=== PATIENT | male | born 1950 | race Caucasian/White ===

== ENCOUNTER 2025-01-15 13:52 | Day surgery (SDC) | payer OTHER ==
[2025-01-12 12:11] LABS: BASOPHILS # (AUTO) 0.1 X10'3 (0-0.2); BASOPHILS % (AUTO) 1.2 % (0-1); EOSINOPHILS # (AUTO) 0.1 X10'3 (0-0.9); EOSINOPHILS % (AUTO) 1.1 % (0-6); HEMATOCRIT 39.5 % (42.0-52.0); HEMOGLOBIN 13.6 g/dl (14.0-17.9); LYMPHOCYTES # (AUTO) 0.7 X10'3 (1.1-4.8); LYMPHOCYTES % (AUTO) 11.9 % (21-51); MEAN CORPUSCULAR HEMOGLOBIN 32.9 PG (27.0-31.0); MEAN CORPUSCULAR HGB CONC 34.3 g/dL (33.0-36.5); MEAN CORPUSCULAR VOLUME 95.7 FL (78-98); MONOCYTES # (AUTO) 0.4 X10'3 (0-0.9); MONOCYTES % (AUTO) 6.8 % (2-12); NEUTROPHILS # (AUTO) 4.8 X10'3 (1.8-7.7); PLATELET COUNT 288 X10'3 (140-440); RED BLOOD COUNT 4.13 X10'6 (4.70-6.10); RED CELL DISTRIBUTION WIDTH 14.8 % (11.5-14.5); WHITE BLOOD COUNT 6.1 X10'3 (4.5-11.0)
[2025-01-12 12:27] LABS: APTT 28 SECONDS (22-32); PROTHROMBIN TIME 10.6 SECONDS (9.0-12.0)
[2025-01-12 12:30] LABS: ALBUMIN 3.5 G/DL (3.4-5.0); ANION GAP 8 (8-16); BLOOD UREA NITROGEN 23 MG/DL (7-18); BUN/CREATININE RATIO 19.8 (10.0-20.0); CALCIUM 9.5 MG/DL (8.5-10.1); CHLORIDE 92 MMOL/L (99-107); CHOL/HDL RATIO 3.3 (0.00-4.99); CHOLESTEROL 176 MG/DL (0-200); CREATININE 1.16 MG/DL (0.60-1.10); HDL CHOLESTEROL 54 MG/DL (35-60); LDL CHOLESTEROL 86 MG/DL (50-100); SODIUM 131 MMOL/L (135-145); TOTAL CARBON DIOXIDE 30.7 MMOL/L (24-32); TRIGLYCERIDES 303 MG/DL (20-135); eGFR 62 ML/MIN
[2025-01-12 12:46] LABS: GLUCOSE 492 MG/DL (70-104)
[~2025-01-15] VITALS: Ht 170.2 cm; Wt 72.8 kg
[2025-01-15] MEDS ORDERED: normal saline 1,000 ML IV SCH (14:35)
[2025-01-15] MEDS ORDERED: diphenhydrAMINE 25mg capsule PO PRN (14:35)
[2025-01-15] MEDS ORDERED: LORazepam 0.5 MG tablet PO PRN (14:35)
--- NOTE | 2025-01-15 14:37 | ELECTROCARDIOGRAPH REPORT ---
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 Jaylen Baker Measurements Intervals [place] Rate: 74 P: 64 OR: 158 QRS: 31 QRSD: 84 T: 43 QT: 375 QTc: 416 Interpretive Statements Sinus rhythm Electronically Signed On 01-15-2025 18:53:[address] Jaylen Baker Please click the below link to view image of tracing.
[2025-01-15] MEDS ORDERED: CHOL20002 PO (14:38)
[2025-01-15] MEDS ORDERED: GABA-530 PO (14:39)
[2025-01-15] MEDS ORDERED: CALC1TAB77 PO (14:39)
[2025-01-15] MEDS ORDERED: METH-798 PO (14:40)
[2025-01-15] MEDS ORDERED: METF-1203 PO (14:41)
[2025-01-15] MEDS ORDERED: METH1TAB32 PO (14:41)
[2025-01-15] MEDS ORDERED: APIX5TAB3 PO (14:42)
[2025-01-15] MEDS ORDERED: LOP12.5T PO (14:43)
[2025-01-15] MEDS ORDERED: SIMV-42 PO (14:43)
[2025-01-15] MEDS ORDERED: CLOP-32 PO (14:43)
== END 2025-01-15 14:55 | disposition home or self-care (01) ==
LOC: SSTAY O 13:52
PROVIDERS: ATTEND Internal Medicine Interventional Cardiology
DX: I65.23 Occlusion and stenosis of bilateral carotid arteries (principal); Z53.8 Procedure and treatment not carried out for other reasons; I48.91 Unspecified atrial fibrillation; E11.9 Type 2 diabetes mellitus without complications; Z79.899 Other long term (current) drug therapy
CPT/HCPCS: 36415; 80048; 80061; 82948; 83695; 85025; 85610; 85730; 93005

== ENCOUNTER 2025-01-15 15:01 | Emergency (ER) | payer OTHER, MEDICARE ==
[~2025-01-15] VITALS: Ht 170.2 cm; Wt 72.7 kg
[~2025-01-15 15:01] MED LIST: APIX5TAB3 PO; CALC1TAB77 PO; CHOL20002 PO; CLOP-32 PO; GABA-530 PO; LOP12.5T PO; METF-1203 PO; METH-798 PO; METH1TAB32 PO; SIMV-42 PO
--- NOTE | 2025-01-15 15:20 | ELECTROCARDIOGRAPH REPORT ---
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
[2025-01-15 15:41] LABS: BASOPHILS # (AUTO) 0.1 X10'3 (0-0.2); BASOPHILS % (AUTO) 0.9 % (0-1); EOSINOPHILS # (AUTO) 0.1 X10'3 (0-0.9); EOSINOPHILS % (AUTO) 0.9 % (0-6); HEMATOCRIT 38.7 % (42.0-52.0); HEMOGLOBIN 13.2 g/dl (14.0-17.9); LYMPHOCYTES # (AUTO) 0.7 X10'3 (1.1-4.8); MEAN CORPUSCULAR HEMOGLOBIN 33.2 PG (27.0-31.0); MEAN CORPUSCULAR HGB CONC 34.2 g/dL (33.0-36.5); MEAN CORPUSCULAR VOLUME 97.1 FL (78-98); MEAN PLATELET VOLUME 8.1 FL (7.4-10.4); MONOCYTES # (AUTO) 0.7 X10'3 (0-0.9); NEUTROPHILS % (AUTO) 76.2 % (42-75); PLATELET COUNT 250 X10'3 (140-440); RED BLOOD COUNT 3.99 X10'6 (4.70-6.10); RED CELL DISTRIBUTION WIDTH 15.1 % (11.5-14.5); WHITE BLOOD COUNT 6.5 X10'3 (4.5-11.0)
--- NOTE | 2025-01-15 15:42 | RADIOLOGY REPORT ---
CHEST RADIOGRAPH Indication: CP Technique: Single frontal view of the chest was obtained Comparison: None FINDINGS: Lines and Tubes: None Lungs: No focal consolidation. Pleura: No effusion. No pneumothorax. Cardiomediastinal contours: Unremarkable Bones: No acute osseous abnormality. IMPRESSION: No acute cardiopulmonary disease.
[2025-01-15 16:08] LABS: ALANINE AMINOTRANSFERASE 18 U/L (12-78); ALBUMIN 3.1 G/DL (3.4-5.0); ALBUMIN/GLOBULIN RATIO 0.7 (1.1-1.5); ALKALINE PHOSPHATASE 100 IU/L (46-116); ANION GAP 8 (8-16); ASPARTATE AMINO TRANSFERASE 14 U/L (10-37); BILIRUBIN,TOTAL 0.5 MG/DL (0.1-1.0); BLOOD UREA NITROGEN 29 MG/DL (7-18); BUN/CREATININE RATIO 24.4 (10.0-20.0); CALCIUM 9.9 MG/DL (8.5-10.1); CHLORIDE 99 MMOL/L (99-107); CREATININE 1.19 MG/DL (0.60-1.10); POTASSIUM 4.8 MMOL/L (3.5-5.1); PRO BRAIN NATRIURETIC PEPTIDE 50 PG/ML (0-125); SODIUM 136 MMOL/L (135-145); TOTAL CARBON DIOXIDE 29.1 MMOL/L (24-32); TOTAL PROTEIN 7.8 G/DL (6.4-8.2); eCRCL 51 ML/MIN; eGFR 60 ML/MIN
[2025-01-15 16:12] LABS: GLUCOSE 412 MG/DL (70-104)
--- NOTE | 2025-01-15 17:06 | Physician Documentation ---
History of Present Illness ~ Chief Complaint: Mechanical Fall Stated Complaint: FALL ON BLOOD THINNERS Time Seen by MD: 16:47 Primary Medical Doctor: SHORTY CROSS Mode of Arrival: POV, Ambulatory HPI This 74-year-old male patient presents to the ED via short stay secondary to a fall yesterday and him taking his Eliquis against directions. Supposed to have a carotid stent placed today therefore they are unable to do that because the patient was anticoagulated. In addition they were concerned about his cognitive decline and fall yesterday where he had a head strike. Reports loss of consciousness she also states that he is at his current baseline cognitively. Day of Fall: January 15, 2025 Tetanus within 5 Years?: No Medication Reconciliation Allergies: Coded Allergies: No Known Allergies (Unverified , 01/15/25) Scheduled Apixaban (Eliquis), 1 TAB PO DAILY, (Reported) Calcium Carbonate/Vitamin D3 (Calcium 600-D Tablet), 1 TAB PO Q12H, (Reported) Cholecalciferol (Vitamin D3) (Vitamin D3), 1 CAP PO DAILY, (Reported) Clopidogrel Bisulfate (Plavix), 1 TAB PO DAILY, (Reported) Gabapentin (Gabapentin), 3 CAP PO Q8H, (Reported) Metformin HCl (Metformin HCl), 1 TAB PO DAILY, (Reported) Methenamine Hippurate (Methenamine Hippurate), 1 TAB PO Q12H, (Reported) Methocarbamol (Methocarbamol), 1 TAB PO Q12H, (Reported) Metoprolol Tartrate (Lopressor tablet), 1 TAB PO DAILY, (Reported) Simvastatin* (Zocor*), 1 TAB PO HS, (Reported) Review of Systems All Other Systems at this time: Reviewed and Negative Physical Exam Vital Signs: Temperature: 97.8, Source: Oral, Heart Rate: 72, Respiratory Rate: 21, BP: 118/66, Pulse Oximetry: 98, Weight: 72.730 Oxygen Flow Rate: 0 Physical Exam General: Alert, no apparent distress. head: No obvious injuries hematomas ecchymosis or erythema. No obvious deformity. Patient does not complain of palpation to the right side of the head where he reportedly struck his head yesterday Neck: Full range of motion. Extremities: Normal range of motion, no deformity. Neurologic: Oriented x2 Psychiatric: Normal mood and affect. Skin: Normal color, warm and dry. No edema, no ecchymosis. Progress Results/Orders Results/Orders Orders - NISHANT BARCLAY LOCATOR Ct Head (01/15/25 17:11) Completed Orders - NISHANT BARCLAY LOCATOR Ct Head (01/15/25 17:11) Vital Signs 01/15/25 01/15/25 01/15/25 15:08 15:41 18:26 Temp 97.8 97.8 Pulse 72 60 Resp 18 21 18 B/P (MAP) 118/66 136/52 Pulse Ox 98 100 O2 Flow Rate 0 Laboratory Tests Test 01/15/25 15:34 01/15/25 17:23 White Blood Count 6.5 Red Blood Count 3.99 L Hemoglobin 13.2 L Hematocrit 38.7 L Mean Corpuscular Volume 97.1 Mean Corpuscular Hemoglobin 33.2 H Mean Corpuscular Hemoglobin Concent 34.2 Red Cell Distribution Width 15.1 H Platelet Count 250 Mean Platelet Volume 8.1 Neutrophils (%) (Auto) 76.2 H Lymphocytes (%) (Auto) 11.0 L Monocytes (%) (Auto) 11.0 Eosinophils (%) (Auto) 0.9 Basophils (%) (Auto) 0.9 Neutrophils # (Auto) 5.0 Lymphocytes # (Auto) 0.7 L Monocytes # (Auto) 0.7 Eosinophils # (Auto) 0.1 Basophils # (Auto) 0.1 CBC Comment Sodium Level 136 Potassium Level 4.8 Chloride Level 99 Carbon Dioxide Level 29.1 Anion Gap 8 Blood Urea Nitrogen 29 H Creatinine 1.19 H Estimated GFR/1.73 m2 60 BUN/Creatinine Ratio 24.4 H Glucose Level 412 *H Calcium Level 9.9 Total Bilirubin 0.5 Aspartate Amino Transf (AST/SGOT) 14 Alanine Aminotransferase (ALT/SGPT) 18 Alkaline Phosphatase 100 Troponin I High Sensitivity 6 6 Pro-B-Type Natriuretic Peptide 50 Total Protein 7.8 Albumin 3.1 L Globulin 4.7 H Albumin/Globulin Ratio 0.7 L Chemistry Comments Troponin I High Sens Percent Delta 0 Troponin I Hi Sens Absolute Change 0 Medical Decision Making Findings Patient's CT findings were negative for any acute intracranial abnormalities. However I did make note of elevated glucose. I spoke to patient's about this. 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 Placement At this point I feel the patient is safe for discharge as indicates that he is at his current cognitive baseline and would be happier at home. Offer admission. They declined. I instructed the to give with the patient's metformin when he they get home Differential Dx:Considerations: Include: Closed head injury, Cardiac injury, Fracture(s), Intraabdominal injury, Pneumothorax, Cerebral contusion, Pulmonary contusion, Spine injury, Tracheal injury, Urological injury, Vascular injury, Abrasion(s), Contusion(s), Foreign body(s), Hematoma(s), Laceration(s), Encephalopathy, Other Departure Disposition: 01 HOME / SELF CARE / HOMELESS Impression: Primary Impression: Fall Condition: Stable Discharge Instructions: Fall Prevention in the Home, Adult, [id number] Referrals: NO PRIMARY CARE PROVIDER (PCP) Education Educated: Patient Educated regarding: diagnosis Signature Scribe Signature: g Attestation: The note accurately reflects work and decisions made by me.Nishant Michaels NP 01/15/25 18:45 NISHANT BARCLAY NP January 15, 2025 17:06
--- NOTE | 2025-01-15 17:29 | RADIOLOGY REPORT ---
Exam: CT CT HEAD History: head strike thinners Technique: [address] images through the posterior fossa and the supratentorial compart ment were acquired without contrast and imaged using soft tissue and bone algorithms. RADIATION DOSE: DLP 1284.66 mGy.cm; CTDI vol 61.57 mGy. Comparison: None Findings: There is no evidence of an intracranial hemorrhage, acute large vessel infarct, mass effect, or midli ne shift. Chronic small-vessel ischemic disease. Left frontotemporal encephalomalacia. There is mild cerebral atrophy. Mild calcification of the carotid siphons. Ethmoidectomy. The calvarium, orbits, remaining paranasal sinuses, sella, middle ears, and mastoids are unremarkable . The superficial soft tissues are within normal limits. Impression: 1. No acute intracranial abnormality.
[2025-01-15 18:26] VITALS: BP 136/52; PULSE 60; RESP 18; TEMP 97.8; O2SAT 100
== END 2025-01-15 18:28 | disposition home or self-care (01) ==
LOC: ER 15:01
DX: Z04.3 Encounter for examination and observation following other accident (principal); R51.9 Headache, unspecified
CPT/HCPCS: 36415; 70450; 71045; 80053; 83880; 84484; 85025; 93005; 99285

== ENCOUNTER 2025-01-25 10:02 | Emergency (ER) | payer OTHER, MEDICARE ==
[~2025-01-25] VITALS: Ht 170.2 cm; Wt 58.9 kg
--- NOTE | 2025-01-25 10:28 | Physician Documentation ---
History of Present Illness ~ Chief Complaint: Eye Pain Stated Complaint: REDNESS IN EYES Time Seen by MD: 10:28 Primary Medical Doctor: [facility] HPI Presents to the emergency department due to two days of bilateral eye irritation with conjunctival redness. No discharge. No chills or fever. No chest pain or shortness of breath. Medication Reconciliation Allergies: Coded Allergies: No Known Allergies (Unverified , 01/25/25) Scheduled Apixaban (Eliquis), 1 TAB PO DAILY, (Reported) Calcium Carbonate/Vitamin D3 (Calcium 600-D Tablet), 1 TAB PO Q12H, (Reported) Cholecalciferol (Vitamin D3) (Vitamin D3), 1 CAP PO DAILY, (Reported) Ciprofloxacin Hcl Ophth* (Ciloxan 0.35 Ophth Drops*), 1-2 DROP EACHEYE Q4HWA Clopidogrel Bisulfate (Plavix), 1 TAB PO DAILY, (Reported) Gabapentin (Gabapentin), 3 CAP PO Q8H, (Reported) Metformin HCl (Metformin HCl), 1 TAB PO DAILY, (Reported) Methenamine Hippurate (Methenamine Hippurate), 1 TAB PO Q12H, (Reported) Methocarbamol (Methocarbamol), 1 TAB PO Q12H, (Reported) Metoprolol Tartrate (Lopressor tablet), 1 TAB PO DAILY, (Reported) Olopatadine HCl (Pataday Once Daily Relief), 1 DRP OP DAILY Simvastatin* (Zocor*), 1 TAB PO HS, (Reported) Review of Systems ROS As stated above in the HPI, otherwise all systems are reviewed and negative. Physical Exam Vital Signs: Temperature: 97.7, Source: Oral, Heart Rate: 64, Respiratory Rate: 16, BP: 126/64, Pulse Oximetry: 97, Weight: 58.900 Oxygen Flow Rate: 0 Physical Exam General: Alert, no apparent distress. HEENT: PERRL, EOMI, mild bilat conjunctival erythema. No exudate. Neck: Full range of motion. Respiratory: Lungs clear, no respiratory distress. Chest: No accessory muscle use. Cardiovascular: Regular rate and rhythm, no murmurs. Gastrointestinal: Soft, nontender, nondistended. Bowels sounds present. Extremities: Normal range of motion, no deformity. Neurologic: Oriented x4. Psychiatric: Normal mood and affect. Skin: Normal color, warm and dry. No edema, no ecchymosis. Progress Results/Orders Results/Orders Vital Signs 01/25/25 10:04 Temp 97.7 Pulse 64 Resp 16 B/P (MAP) 126/64 Pulse Ox 97 O2 Flow Rate 0 Medical Decision Making Eye Diff. Dx: Considerations: Include: Conjuctivits-allergic, Conjuctivitis- bacterial, Conjuctivits-chlamydial, Conjuctivitis-viral, Corneal abrasion, Corneal laceration, Corneal ulceration, Foreign body-conjuctiva, Foreign body- corneal, Foreign body-intraocular, Foreign body-lid, Glaucoma, Globe rupture, Hordeolum, Iritis, Orbital cellulitis, Periobital cellulitis Departure Time of Disposition: 10:32 Disposition: 01 HOME / SELF CARE / HOMELESS Impression: Primary Impression: Conjunctivitis Qualified Codes: H10.33 - Unspecified acute conjunctivitis, bilateral Additional Instructions: This eye redness and irritation is likely an allergic process. Use pataday eye drops daily at bedtime. Use the antibiotic drops as prescribed in both eyes x 5 days. See eye doctor soon for check. Return if worse. Referrals: NO PRIMARY CARE PROVIDER (PCP) Prescriptions Olopatadine HCl (Pataday Once Daily Relief) 0.7 % Drops 1 DRP OP DAILY for 7 Days, #1 EA Prov: IKE CROW NP 01/25/25 Ciprofloxacin Hcl Ophth* (Ciloxan 0.35 Ophth Drops*) 2.5 Ml Bottle 1-2 DROP EACHEYE Q4HWA for 5 Days, #1 EACH Prov: IKE CROW NP 01/25/25 Education Educated: Patient, Family Educated regarding: diagnosis, treatment, prognosis, need for follow up Signature Scribe Signature: no scribe Attestation: The note accurately reflects work and decisions made by me.Ike Crow - PARAG 01/25/25 10:36 IKE CROW NP January 25, 2025 10:28
[2025-01-25] MEDS ORDERED: CIPR2.5D21 EACHEYE (10:34)
[2025-01-25] MEDS ORDERED: OLOP5DRO24 OP (10:34)
[2025-01-25 10:45] VITALS: BP 126/64; PULSE 64; RESP 16; TEMP 97.7; O2SAT 97
== END 2025-01-25 10:46 | disposition home or self-care (01) ==
LOC: ER 10:03
DX: H10.9 Unspecified conjunctivitis (principal)
CPT/HCPCS: 99283

== ENCOUNTER 2025-02-02 10:33 | Outpatient (CLI) | payer OTHER, MEDICARE ==
[~2025-02-02 10:33] MED LIST changes: +OLOP5DRO24 OP
[2025-02-02 11:10] LABS: APTT 28 SECONDS (22-32); INR 1.1 INR; PROTHROMBIN TIME 11.3 SECONDS (9.0-12.0)
[2025-02-02 11:13] LABS: ANION GAP 4 (8-16); BLOOD UREA NITROGEN 16 MG/DL (7-18); CALCIUM 9.4 MG/DL (8.5-10.1); CHLORIDE 98 MMOL/L (99-107); CREATININE 1.23 MG/DL (0.60-1.10); POTASSIUM 4.4 MMOL/L (3.5-5.1); SODIUM 132 MMOL/L (135-145); TOTAL CARBON DIOXIDE 30.5 MMOL/L (24-32); eGFR 58 ML/MIN
[2025-02-02 11:18] LABS: BASOPHILS % (AUTO) 0.6 % (0-1); EOSINOPHILS % (AUTO) 0.6 % (0-6); HEMATOCRIT 36.2 % (42.0-52.0); HEMOGLOBIN 12.4 g/dl (14.0-17.9); LYMPHOCYTES # (AUTO) 0.6 X10'3 (1.1-4.8); LYMPHOCYTES % (AUTO) 9.7 % (21-51); MEAN CORPUSCULAR HEMOGLOBIN 33.5 PG (27.0-31.0); MEAN CORPUSCULAR HGB CONC 34.3 g/dL (33.0-36.5); MEAN CORPUSCULAR VOLUME 97.6 FL (78-98); MONOCYTES # (AUTO) 0.5 X10'3 (0-0.9); MONOCYTES % (AUTO) 8.2 % (2-12); NEUTROPHILS % (AUTO) 80.9 % (42-75); PLATELET COUNT 259 X10'3 (140-440); RED BLOOD COUNT 3.71 X10'6 (4.70-6.10); RED CELL DISTRIBUTION WIDTH 14.8 % (11.5-14.5); WHITE BLOOD COUNT 6.2 X10'3 (4.5-11.0)
[2025-02-02 11:24] LABS: GLUCOSE 503 MG/DL (70-104)
== END 2025-02-02 23:59 | disposition home or self-care (01) ==
LOC: LAB 10:33 → EDSTATUS 02-05 17:00
PROVIDERS: ATTEND Student in an Organized Health Care Education/Training Program
DX: I48.91 Unspecified atrial fibrillation (principal); Z79.01 Long term (current) use of anticoagulants
CPT/HCPCS: 36415; 80048; 85025; 85610; 85730

== ENCOUNTER 2025-02-12 10:35 | Inpatient (IN) | payer OTHER, MEDICARE ==
[2025-02-09 13:06] LABS: BASOPHILS % (AUTO) 0.5 % (0-1); EOSINOPHILS # (AUTO) 0.1 X10'3 (0-0.9); EOSINOPHILS % (AUTO) 1.7 % (0-6); HEMATOCRIT 38.1 % (42.0-52.0); HEMOGLOBIN 13.1 g/dl (14.0-17.9); LYMPHOCYTES # (AUTO) 0.8 X10'3 (1.1-4.8); LYMPHOCYTES % (AUTO) 14.5 % (21-51); MEAN CORPUSCULAR HEMOGLOBIN 33.9 PG (27.0-31.0); MEAN CORPUSCULAR HGB CONC 34.3 g/dL (33.0-36.5); MEAN CORPUSCULAR VOLUME 98.8 FL (78-98); MEAN PLATELET VOLUME 7.9 FL (7.4-10.4); MONOCYTES # (AUTO) 0.6 X10'3 (0-0.9); MONOCYTES % (AUTO) 11.3 % (2-12); NEUTROPHILS # (AUTO) 3.9 X10'3 (1.8-7.7); PLATELET COUNT 264 X10'3 (140-440); RED BLOOD COUNT 3.85 X10'6 (4.70-6.10); RED CELL DISTRIBUTION WIDTH 14.4 % (11.5-14.5); WHITE BLOOD COUNT 5.4 X10'3 (4.5-11.0)
[2025-02-09 13:18] LABS: APTT 29 SECONDS (22-32); INR 1.1 INR; PROTHROMBIN TIME 10.9 SECONDS (9.0-12.0)
[2025-02-09 13:21] LABS: ALBUMIN 3.2 G/DL (3.4-5.0); ANION GAP 10 (8-16); BLOOD UREA NITROGEN 21 MG/DL (7-18); BUN/CREATININE RATIO 19.4 (10.0-20.0); CALCIUM 9.3 MG/DL (8.5-10.1); CHLORIDE 103 MMOL/L (99-107); CHOL/HDL RATIO 2.3 (0.00-4.99); CHOLESTEROL 118 MG/DL (0-200); CREATININE 1.08 MG/DL (0.60-1.10); GLUCOSE 153 MG/DL (70-104); HDL CHOLESTEROL 52 MG/DL (35-60); LDL CHOLESTEROL 46 MG/DL (50-100); POTASSIUM 4.2 MMOL/L (3.5-5.1); SODIUM 141 MMOL/L (135-145); TOTAL CARBON DIOXIDE 28.5 MMOL/L (24-32); TRIGLYCERIDES 227 MG/DL (20-135); eGFR 67 ML/MIN
[2025-02-12] VITALS (14 sets, daily range): BP systolic 83–114; BP diastolic 43–62; PULSE 55–75; RESP 13–18; TEMP 97.5–98.7; O2SAT 96–98
[~2025-02-12] VITALS: Ht 170.2 cm; Wt 73.8 kg
[2025-02-12] MEDS ORDERED: diphenhydrAMINE 25mg capsule PO PRN (11:15)
[2025-02-12] MEDS ORDERED: LORazepam 0.5 MG tablet PO PRN (11:15)
--- NOTE | 2025-02-12 11:18 | ELECTROCARDIOGRAPH REPORT ---
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 Tito Allen Measurements Intervals [place] Rate: 75 P: 68 MS: 158 QRS: 28 QRSD: 87 T: 52 QT: 372 QTc: 416 Interpretive Statements Sinus rhythm Electronically Signed On 02-13-2025 8:14:[address] Tito Allen Please click the below link to view image of tracing.
[2025-02-12] MEDS ORDERED: iohexol 350MG/ML 100ml bottle IV ONE (16:11)
[2025-02-12] MEDS ORDERED: LIDOcaine 1% 30ml preserv. free vial ONE (16:11)
[2025-02-12] MEDS ORDERED: heparin 1,000unit/ml 10ml vial 10 ML ONE (16:11)
[2025-02-12] MEDS ORDERED: phenylephrine 10mg/ml inj. ONE (16:11)
[2025-02-12] MEDS ORDERED: atropine 0.1mg/ml 10ml syringe ONE (16:11)
[2025-02-12] MEDS ORDERED: DOPamine 400mg/D5W 250ml 0 ML IV ONE (16:12)
[2025-02-12] MEDS ORDERED: epiNEPHrine 0.1mg/ml 10ml syringe ONE (16:19)
[2025-02-12] MEDS ORDERED: heparin 1,000 UNITS/NS 500ml 500 ML ONE ×2 (18:03→18:20)
[2025-02-12] MEDS ORDERED: clopidogrel 300mg tablet ONE (18:50)
--- NOTE | 2025-02-12 18:58 | CARDIAC CATH REPORT ---
Cardiac Cath Report Providers to CC CC: SEB GUZMAN MD; Rafael Arambula MD Procedure Comments: 1. Aortic arch angiography. 2. Selective Right common and nonselective Right internal and external carotid artery angiography. 3. Angioplasty/stenting of the Right internal and common carotid artery using embolic protection. 4. Right Femoral Artery Angiography Brief History/Indications: 74yo man with HTN, HLD, Prior neck/head radiation, carotid stenosis and high risk for endarterectomy referred for evaluation. Techniques: After informed consent was obtained, the patient was brought to the lab where she was prepped and draped in the usual sterile fashion. After adequate anesthesia was obtained using 1% lidocaine to the right groin, 7-Frisian sheath was inserted into the right femoral artery using a modified Seldinger technique. Thereafter, using a pigtail catheter, the catheter was advanced into the as cending aorta and aortic arch angiography performed. Next, using a Munoz 2 catheter, the catheter was advanced over the 0.035 wire into the ascending aorta where it was formed. The Munoz 2 catheter was then manipulated to engage the right common carotid artery and selective angiography of the right common and nonselective right internal and external carotid artery angiography was performed. Revascularization was then performed as described below. Findings Findings: 1. The patient has a type 1 Aortic arch with mild calcification of the arch and great vessels. 2. The Right common Carotid has mild stenosis. 3. The Right Internal Carotid artery has an area of 90% stenosis at the ostium PERCUTANEOUS TRANSLUMINAL ANGIOPLASTY/STENTING: The Munoz 2 catheter was exchanged over a stiff wire for a 90 cm Girard sheath. Using a 7.2 Emboshield, the embolic protection system was carefully navigated across the lesion into the internal carotid artery. The internal carotid artery was then angioplastied with a 4 x 20 mm balloon. Next, using a 9-7 x 30 Xact stent, the stent was advanced across the lesion where it was deployed. This was then postdilated with a 5 x 20 mm balloon. Followup angiography revealed excellent angiographic results. Results Results: 1. Angioplasty/stenting of a 90% right internal carotid artery stenosis with a 9-7 x 30mm Xact stent with excellent angiographic results and less than 20% residual stenosis. 2. The patient remained clinically and hemodynamically stable throughout the procedure. 3. RFA access, closed with Perclose x 1 RECOMMENDATIONS: 1. Cont Plavix x 3 months(On Eliquis) 2. Cont Uptitration of other max-tolerated GDMT SWATHI GUZMAN MD Feb 12, 2025 18:58
[2025-02-12] MEDS ORDERED: pseudoephedrine 30mg tablet PO PRN (19:35)
[2025-02-12] MEDS ORDERED: acetaminophen 325mg tablet PO PRN (19:35)
[2025-02-12] MEDS ORDERED: HYDROcodone/acetaminophen 10/325mg tab PO PRN (19:35)
[2025-02-12] MEDS ORDERED: hydrALAZINE 20mg/ml inj. IV PRN (19:35)
[2025-02-12] MEDS ORDERED: HYDROcodone/acetaminophen 5mg/325mg tablet PO PRN (19:35)
[2025-02-12] MEDS: Methocarbamol 750 MG PO SCH (20:00)
[2025-02-12] MEDS: normal saline 1,000 ML IV SCH (20:30)
[2025-02-12] MEDS: simvastatin 20mg tablet PO SCH (23:02)
[2025-02-12] MEDS: gabapentin 300mg capsule PO SCH (23:02)
[2025-02-13 02:00] VITALS: BP 100/52; PULSE 54; RESP 16; TEMP 97.5; O2SAT 95
[2025-02-13 03:00] VITALS: BP 87/45; PULSE 53
[2025-02-13 06:00] VITALS: BP 130/49; PULSE 118; RESP 18; TEMP 97.4; O2SAT 94
[2025-02-13 08:00] VITALS: RESP 18; O2SAT 94
[2025-02-13] MEDS: apixaban 5mg tablet PO SCH (08:14)
[2025-02-13] MEDS: metoprolol tartrate 25mg tablet PO SCH (08:14)
[2025-02-13] MEDS: clopidogrel 75mg tablet PO SCH (08:14)
--- NOTE | 2025-02-13 10:14 | DISCHARGE SUMMARY ---
Discharge Summary Providers to CC ~ Discharge Summary Admission Diagnosis: Carotid artery stenosis Hospital Course DATE OF ADMISSION: 02/12/25 DATE OF DISCHARGE: 02/13/25 Discharge Diagnosis\Comment: Carotid artery stenosis status post stent to the right internal carotid artery Operations\Procedures: 1. Aortic arch angiography. 2. Selective Right common and nonselective Right internal and external carotid artery angiography. 3. Angioplasty/stenting of the Right internal and common carotid artery using embolic protection. 4. Right Femoral Artery Angiography Consultants: No consultants Complications: No complications Condition on DC: Stable Continued Medications: Apixaban (Eliquis) 5 Mg Tablet 1 TAB PO DAILY, TAB 0 Refills Calcium Carbonate/Vitamin D3 (Calcium 600-D Tablet) 1 Each Tablet 1 TAB PO Q12H, TAB 0 Refills Clopidogrel Bisulfate (Plavix) 75 Mg Tablet 1 TAB PO DAILY, TAB 0 Refills Gabapentin (Gabapentin) 100 Mg Capsule 3 CAP PO Q8H, CAP 0 Refills Metformin HCl (Metformin HCl) 500 Mg Tablet 1 TAB PO DAILY, TAB Methenamine Hippurate (Methenamine Hippurate) 1 Gram Tablet 1 TAB PO Q12H, TAB 0 Refills Methocarbamol (Methocarbamol) 750 Mg Tablet 1 TAB PO Q12H, TAB 0 Refills Metoprolol Tartrate (Lopressor tablet) 25 Mg Tablet 1 TAB PO DAILY, TAB Hold for SBP below 100mm Hg Hold for Heart Rate below 60. Simvastatin* (Zocor*) 20 Mg Tablet 1 TAB PO HS, TAB Discharge Summary: This is a 74-year-old male with past medical history significant for hypertension, hyperlipidemia, prior head/neck radiation, a-fib, carotid artery stenosis with high-risk for endarterectomy. Underwent carotid angioplasty/stenting of a 90% right internal carotid artery stenosis with a 9-7 x 30 mm Xact stent. Please see Dr. Redd Baker's dictation for further details on the procedure. He tolerated well. Was monitored overnight in the telemetry unit. Has remained hemodynamically stable. No focal neurological deficits Physical exam her to discharge: General: Awake, alert, oriented. No apparent distress Neck: Supple. Normal range of motion. No JVD Respiratory: Lungs are clear to auscultation bilaterally. No respiratory distress. Chest: Normal shape and size. No accessory muscle use. Cardiovascular: Regular rate and rhythm. S1-S2. No murmur, gallop, rub. Gastrointestinal: Abdomen is soft. Nontender to palpation. Bowel sounds present. Extremities: No lower extremity edema, cyanosis or clubbing. Right femoral catheter site with dressing clean dry and intact. There is no ecchymosis or swelling. No hematoma. Dorsalis pedis pulses are palpable distally. Neurologic: Neuro: Cranial nerves II-XII grossly intact. Motor strength 5/5 in all four extremi ties. Sensation symmetric and intact to light touch throughout. Finger to nose intact. No pronator drift. No Deficits were appreciated. Psychiatric: Normal mood and affect. Skin: Normal color. Warm and dry. Lesion is being discharged home in stable condition. He will take his medications as prescribed and follow up as scheduled. Reviewed with Dr. Redd Baker who is in agreement with the above. *Problems/Diagnosis: (1) Carotid artery stenosis Total Time Spent on D/C: > 30 Minutes Counseling Services Smoking & Tobacco Cessation: N/A Supervising MD Co-signing Provider: MARTY Heller NP Feb 13, 2025 10:14
[2025-02-13 11:00] VITALS: BP 100/41; PULSE 58; RESP 13; TEMP 97.7; O2SAT 100
== END 2025-02-13 11:10 | disposition home or self-care (01) | DRG 36 ==
LOC: SSTAY O 10:35 → PCU 3S 21:29
PROVIDERS: ADMIT Student in an Organized Health Care Education/Training Program; ATTEND Student in an Organized Health Care Education/Training Program
PROC: 037K3DZ Dilation of Right Internal Carotid Artery with Intraluminal Device, Percutaneous Approach (ICD-10-PCS; principal; 2025-02-12)
PROC: B3101ZZ Fluoroscopy of Thoracic Aorta using Low Osmolar Contrast (ICD-10-PCS; 2025-02-12)
PROC: B3131ZZ Fluoroscopy of Right Common Carotid Artery using Low Osmolar Contrast (ICD-10-PCS; 2025-02-12)
PROC: B3191ZZ Fluoroscopy of Right External Carotid Artery using Low Osmolar Contrast (ICD-10-PCS; 2025-02-12)
DX: I65.21 Occlusion and stenosis of right carotid artery (principal); Z00.6 Encounter for examination for normal comparison and control in clinical research program; I10 Essential (primary) hypertension; E78.5 Hyperlipidemia, unspecified; I48.91 Unspecified atrial fibrillation; Z79.84 Long term (current) use of oral hypoglycemic drugs
CPT/HCPCS: 36415; 37215; 80048; 80061; 82948; 83695; 85025; 85610; 85730; 87081; 93005; 99152; 99153; A4314; A6258; C1725; C1760; C1769; C1876; C1884; C1887; C1894; G0378; J0171; J0461; J1265; J1644; J2003; J2371; J7030; Q9967